=== PATIENT | male | born 1975 | race Caucasian/White ===

== ENCOUNTER 2016-12-23 16:11 | Emergency (ER) | payer OTHER ==
[2016-12-23 17:07] LABS: BASOPHIL 0.7 % (0-2); EOSINOPHIL 2.6 % (0-5); HCT 42.6 % (42.0-52.0); HGB 15.2 g/dl (13.2-18.0); LYMPHOCYTE 29.5 % (15-48); MCH 31.3 pg (25.0-31.0); MCHC 35.7 g/dL (32.0-36.0); MCV 87.8 fL (78.0-100.0); MONOCYTE 9.6 % (0-12); NEUTROPHIL 57.6 % (41-80); PLT 173 K/uL (150-400); RBC 4.85 M/uL (4.70-6.00); RDW 13.9 % (11.5-14.0); WBC 7.3 K/uL (4.0-10.5)
[2016-12-23 17:12] LABS: INR 0.93 (0.9-1.2); PROTHROMBIN TIME 12.1 SECONDS (11.7-14.0); PTT 24.7 SECONDS (23.2-31.4)
[2016-12-23 17:13] LABS: D-DIMER < 0.27 ug/mLFEU (0.00-0.41)
[2016-12-23 17:18] LABS: ALBUMIN 4.6 g/dL (3.5-5.0); BILIRUBIN - TOTAL 0.4 mg/dL (0.1-1.0); CREATININE 1.1 mg/dL (0.7-1.2); TOTAL PROTEIN 7.6 g/dL (6.4-8.3)
[2016-12-23 17:19] LABS: CKMB 2.45 ng/mL (0.97-4.94); TROPONIN T < 0.010 ng/mL
== END 2016-12-23 17:58 | disposition home or self-care (01) ==
LOC: FER 16:11
PROVIDERS: Emergency Medicine
DX: M94.0 Chondrocostal junction syndrome [Tietze] (principal); E78.5 Hyperlipidemia, unspecified; K21.9 Gastro-esophageal reflux disease without esophagitis; Z79.899 Other long term (current) drug therapy
CPT/HCPCS: 36415; 71020; 80053; 82550; 82553; 84484; 85025; 85379; 85610; 85730; 93005; J2930